=== PATIENT | male | born 1980 | race Caucasian/White ===

== ENCOUNTER 2017-08-07 09:35 | Emergency (ER) | payer OTHER ==
[~2017-08-07] VITALS: Ht 175.3 cm; Wt 113.4 kg
[2017-08-07 09:49] VITALS: BP 142/68
--- NOTE | 2017-08-07 09:55 | NUR ---
PT TRIAGED, AMBULATED TO ER LOBBY WAITING FOR ER BED. ERMD AWARE OF PATIENT STATUS.
--- NOTE | 2017-08-07 10:44 | NUR ---
PATIENT TO OF#2 AT THIS TIME.
--- NOTE | 2017-08-07 10:45 | NUR ---
37/M PRESENT TO ER C/O COUGH x 3 WEEKS. PT WAS SEEN BY PMD YESTERDAY. MEDS: GUIFENESIN WITH CODIENE, AZITHROMYCIN. HX: NONE. DENIES N/V/D; SKIN IS PINK/WARM/DRY; AAOX4 WITH EVEN AND STEADY GAIT; LUNGS CLEAR BL;PATIENT STATES MID CHEST PAIN OF 3/10 WHEN COUGHING AT THIS TIME; PATIENT POSITIONED FOR COMFORT; HOB ELEVATED; BEDRAILS UP X2; BED DOWN. ER MD MADE AWARE OF PT STATUS.
[2017-08-07] MEDS ORDERED: DEXAMETHASONE 10 MG/ML VIAL IM ONE (12:00)
[2017-08-07 12:47] VITALS: BP 131/74
--- NOTE | 2017-08-07 12:51 | NUR ---
Patient discharged with v/s stable. Written and verbal after care instructions given and explained. Patient alert, oriented and verbalized understanding of instructions. Ambulatory with steady gait. All questions addressed prior to discharge. ID band removed. Patient advised to follow up with PMD. Rx of albuterol and prednisone given. Patient educated on indication of medication including possible reaction and side effects. Opportunity to ask questions provided and answered.
== END 2017-08-07 12:51 | disposition home or self-care (01) ==
LOC: MED 09:35
DX: J20.9 Acute bronchitis, unspecified (principal)
CPT/HCPCS: 71020; 96372; 99284; J1100

== ENCOUNTER 2019-08-20 22:30 | Emergency (ER) | payer OTHER ==
[~2019-08-20] VITALS: Ht 175.3 cm; Wt 117.9 kg
[2019-08-20 22:34] VITALS: BP 112/72
--- NOTE | 2019-08-20 22:39 | NUR ---
PT AMBULATED TO LOBBY WITH STEADY GAIT
--- NOTE | 2019-08-20 22:39 | NUR ---
INFLUENZA SWAB COLLECTED
--- NOTE | 2019-08-20 23:11 | NUR ---
PT AMBULATED TO BED 12
--- NOTE | 2019-08-20 23:21 | NUR ---
BIB SELF C/O COUGH + FLU LIKE SYMPTOMS X1 DAY. PATIENT BEGAN FEELING CHILLS/ FEVER/ FRONTAL HEADACHE/ PHOTOSENSITIVITY YESTERDAY. DENIES ANY NAUSEA/VOMITING/DIARRHEA. NO SOB/CHEST PAIN REPORTED. RESP EVEN AND UNLABORED.VSS. NO PMH NKA
[2019-08-21] MEDS ORDERED: IBUPROFEN 600 MG TAB PO ONE (00:35)
--- NOTE | 2019-08-21 01:37 | NUR ---
Dr. Peres examining patient.
[2019-08-21] MEDS ORDERED: KETOROLAC 60 MG/2 ML VIAL IM ONE (01:40)
[2019-08-21 01:48] VITALS: BP 112/72
--- NOTE | 2019-08-21 01:48 | NUR ---
PT DISCHARGED WITH PAPERWORK. EDUCATED PT REGARDING MEDICATIONS AND D/C INSTRUCTIONS. PT VERBALIZED UNDERSTANDING OF TEACHING. TOLD PT TO FOLLOW UP WITH PCP AND WHEN TO RETURN TO ED. PT STABLE CONDITION. NO FEVER NOTED. ALL QUESTIONS ANSWERED.
== END 2019-08-21 01:48 | disposition home or self-care (01) ==
LOC: MED 22:30
DX: R50.9 Fever, unspecified (principal); R05 Cough; R11.0 Nausea
CPT/HCPCS: 87804; 96372; 99283; J1885